=== PATIENT | male | born 1960 | race Caucasian/White ===

== ENCOUNTER 2017-07-13 11:44 | Emergency (ER) | payer SELFPAY ==
[~2017-07-13] VITALS: Ht 170.2 cm; Wt 67.0 kg
[2017-07-13] MEDS ORDERED: LIDODERM 5% P1 PATCH TD (15:10)
[2017-07-13] MEDS ORDERED: NAPROXEN500 MG PO (15:10)
[2017-07-13] MEDS ORDERED: VALIUM2 MG PO (15:10)
[2017-07-13 15:30] VITALS: BP 154/86
== END 2017-07-13 15:31 | disposition home or self-care (01) ==
LOC: EME 11:44
DX: S39.012A Strain of muscle, fascia and tendon of lower back, initial encounter (principal); X58.XXXA Exposure to other specified factors, initial encounter; G89.29 Other chronic pain; F12.90 Cannabis use, unspecified, uncomplicated; F17.200 Nicotine dependence, unspecified, uncomplicated
CPT/HCPCS: 99281; 99284; J1885